=== PATIENT | male | born 1960 | race Caucasian/White ===

== ENCOUNTER → 2019-09-19 10:11 | Outpatient (CLI) | payer OTHER, SELFPAY ==
--- NOTE | 2019-09-19 10:34 | DI.CT.S_ITS ---
PROCEDURE: CT ANGIO CHEST INDICATIONS: Thoracic aortic ectasia TECHNIQUE: After the administration of intravenous contrast, 2 mm thick sections acquired from the pulmonary apices to the posterior costophrenic angles. 3-dimensional maximum intensity projection (MIP) coronal and sagittal reformats were then acquired through the thorax. For radiation dose reduction, the following was used: automated exposure control, adjustment of mA and/or kV according to patient size. COMPARISON: None. FINDINGS: Image quality: Excellent. Pulmonary arteries: Pulmonary arteries are normal in size, and demonstrate no intraluminal filling defects to suggest central pulmonary embolism. Lungs and pleura: Lungs are clear. No pleural effusions or pneumothorax. Central and peripheral airways are patent. Mediastinum: Heart size is normal, without pericardial effusion. No mediastinal or hilar adenopathy. The descending aorta is normal in caliber and enhancement. There is no suspicion for presence of aortic dissection. The ascending aorta maximal axial dimensions are 4.3 cm AP and 4.1 cm transverse, seen on series 4 image 52. Esophagus is normal in caliber, without hiatal hernia. Bones and chest wall: No suspicious bony lesions. Ribs and thoracic spine appear intact throughout. Thyroid gland appears normal. No axillary or supraclavicular adenopathy. Abdomen: Visualized upper abdominal solid organs appear normal in the early arterial phase of enhancement. IMPRESSION: No sign of pulmonary embolus or aortic dissection. No focal aortic aneurysm is found but there is ectasia of the ascending aorta with maximal axial dimensions of 4.3 cm AP and 4.1 cm transverse. No cardiac chamber enlargement is associated. Dictated by: Andrew Domingo M.D. on 09/19/2019 at 10:58 Approved by: Andrew Domingo M.D. on 09/19/2019 at 11:03
== END ==
PROVIDERS: PCP Internal Medicine; Referring Provider Internal Medicine; Visit Provider Internal Medicine
DX: I77.810 Thoracic aortic ectasia (principal)
CPT/HCPCS: 71275; Q9967

== ENCOUNTER 2020-04-15 06:29 | Emergency (ER) | payer OTHER, SELFPAY ==
[2020-04-15 06:39] VITALS: BP 169/103; PULSE 49; RESP 18; TEMP 36.1; O2SAT 100; BMI 25.8
--- NOTE | 2020-04-15 06:45 | DI.RAD.S_ITS ---
PROCEDURE: XR FOOT LT MIN 3V INDICATIONS: dropped garduno on foot; swelling/pain to first metatarsal TECHNIQUE: 3 views of the foot were acquired. COMPARISON: None. FINDINGS: Bones: No fractures or dislocations. Moderate degenerative changes present at the 1st MTP joint. No suspicious bony lesions. Soft tissues: No tibiotalar joint effusion. Achilles tendon appears normal. IMPRESSION: Degenerative change. No acute radiographic findings. Dictated by: Sheryl Samayoa M.D. on 04/15/2020 at 8:13 Approved by: Sheryl Samayoa M.D. on 04/15/2020 at 8:13
--- NOTE | 2020-04-15 07:13 | ED_ITS ---
HPI - Extremity Injury (Lower) General Chief Complaint: Extremity Injury, Lower Stated Complaint: thinks he broke left foot Time Seen by Provider: 04/15/20 07:09 Source: patient Mode of arrival: Wheelchair Limitations: no limitations History of Present Illness HPI Narrative: This is a 59-year-old male comes emergency department with complaint pain in his left foot. Patient states that he knocked a heavy base over on his foot. Patient states he has some pain at that location but denies any other injury. He states a little bit swollen and red. He normally has a large bump there as well as on the other side. He denies any other issues such as numbness, tingling or weakness. He denies any medical issues, no allergies to medications. Related Data Allergies Allergy/AdvReac Type Severity Reaction Status Date / Time No Known Drug Allergies Allergy Verified 04/15/20 06:44 Review of Systems Review of Systems ROS Unobtainable: All systems reviewed & are unremarkable except as noted in HPI and below Patient History Social History Smoking Status: Never smoker Smoking Status: Never smoker alcohol intake frequency: 0-2 drinks per day Substance Use Type: does not use Exam Narrative Exam Narrative: GENERAL: Alert and oriented x three, well-nourished, well- appearing male in no acute distress HEENT: Head normocephalic, atraumatic, EOMI, pupils reactive, face symmetric, moist mucous membranes NECK: Supple, full range of motion EXTREMITIES: Normal range of motion, no clubbing or edema. Neurovascularly intact. Patient has slight swelling over the 1st metatarsal, very mild tenderness. No ecchymosis. NEUROLOGICAL: Cranial nerves II through XII grossly intact. Moving all extremities SKIN: Warm, dry, no petechiae, no rashes or lesions. Initial Vital Signs Initial Vital Signs: Vital Signs Temperature 97.0 F L 04/15/20 06:39 Pulse Rate 49 L 04/15/20 06:39 Respiratory Rate 18 04/15/20 06:39 Blood Pressure 169/103 H 04/15/20 06:39 Pulse Oximetry 100 04/15/20 06:39 Course Orders Ordered: ED Orders 04/15/20 06:45 XR foot LT min 3V Stat Vital Signs Vital signs: Vital Signs - 8 hr 04/15/20 06:39 Temperature 97.0 F L Pulse Rate 49 L Respiratory Rate 18 Blood Pressure 169/103 H Pulse Oximetry 100 MDM - Extremity Injury (Lower) Imaging Data left foot xray: Attestation: I personally reviewed and interpreted this imaging study as follows: My Impression: No fracture appreciated, patient does have large bone spur making difficulty to fully verify. No other fx/dislocation noted. Radiologist's Impression: [address] [address] XRay Report Signed Patient: Dionte OrrMR#: [id number] : 1960Acct:[id number] Age/Sex: 59 / MDate of Service: 04/15/20 Loc: ED Accession Number: [id number] Procedure: XR foot LT min 3V Ordering Provider: Kevin York MD PROCEDURE: XR FOOT LT MIN 3V INDICATIONS: dropped garduno on foot; swelling/pain to first metatarsal TECHNIQUE: 3 views of the foot were acquired. COMPARISON: None. FINDINGS: Bones: No fractures or dislocations. Moderate degenerative changes present at the 1st MTP joint. No suspicious bony lesions. Soft tissues: No tibiotalar joint effusion. Achilles tendon appears normal. IMPRESSION: Degenerative change. No acute radiographic findings. Dictated by: Sheryl Samayoa M.D. on 04/15/2020 at 8:13 Approved by: Sheryl Samayoa M.D. on 04/15/2020 at 8:13 [facility] Narrative Medical decision making narrative: Patient states feels comfortable at this time, plan to do ortho shoe and can d/c if asymptomatic, discussed xray findings and difficulty to evaluate fully but with minimal tenderness and ease with weightbearing suspicion is low for fracture. Patient is comfortable with this plan. Discharge Plan Departure Patient Disposition: Home Clinical Impression: Foot pain, left Discharge Date/Time: 04/15/20 07:31 Activity Restrictions/Additional Instructions: Follow-up in 7-10 days if your symptoms have not completely resolved, you can occasionally have occult fractures that are not seen on initial x-rays these can often be visualized in that time frame. May take Tylenol and/or ibuprofen as needed for pain. Splint Care: Keep splint clean and dry. Elevated affected body part to decrease swelling. OK to use ice pack on the affected body part. Use for 15-20 minutes each time, for 5-6x per day. If you develop worsening pain, numbness, tingling, discoloration of the affected body part, loosen the splint by loosening the DAYDAY wrap, and either see your doctor for an urgent re-assessment, or return to the Emergency Department. Return to the Emergency Department for any new or worsening symptoms. Referrals: Rio Hoffman MD [Primary Care Provider] -
== END 2020-04-15 07:31 | disposition home or self-care (01) ==
PROVIDERS: Emergency Provider Emergency Medicine; PCP Internal Medicine
DX: M79.672 Pain in left foot (principal)
CPT/HCPCS: 73630; 99281; 99283

== ENCOUNTER 2022-03-31 07:05 | Emergency (ER) | payer OTHER, SELFPAY ==
[2022-03-31 07:05] VITALS: BP 159/98; PULSE 56; RESP 18; TEMP 36.4; O2SAT 98; BMI 25.7
--- NOTE | 2022-03-31 07:46 | DI.RAD.S_ITS ---
PROCEDURE: XR LUMBAR SPINE 2-3V INDICATIONS: hx of fusion with injury lifting TECHNIQUE: 3 views of the lumbar spine were acquired. COMPARISON: None. FINDINGS: Bones: 5 [id number] vertebrae are present. Posterior fusion at L4-L5 has been performed. Multilevel disc space narrowing and endplate osteophyte formation, indicating degenerative disc disease. Facet hypertrophy throughout the mid and lower lumbar spine. There is normal bony alignment. No vertebral body compression fractures. No suspicious bony lesions. Soft tissues: Overlying bowel gas pattern is normal. No suspicious soft tissue calcifications. IMPRESSION: 1. Postsurgical sequelae. 2. No acute fracture. No osseous lesion. If symptoms and/or clinical suspicion for pathology persist, further assessment with repeat, or advanced imaging (e.g., CT, MRI, or bone scan) may be helpful for further assessment. Dictated by: Betsy Silverio M.D. on 03/31/2022 at 8:09 Approved by: Betsy Silverio M.D. on 03/31/2022 at 8:09
--- NOTE | 2022-03-31 07:46 | ED.BACK ---
HPI - Back Pain/Injury General Chief Complaint: Back Pain/Injury Stated Complaint: back spasms Time Seen by Provider: 03/31/22 07:38 Source: patient and family Mode of arrival: Ambulatory Limitations: no limitations History of Present Illness HPI Narrative: Patient is a 61-year-old male. Has had a lumbar spinal fusion many years ago. Does spend quite a bit of time working out. At the end of last week he was doing some lifts when there was 1 particular event that caused him to have pain in his lower back. It has continued to hurt since then. He is not having any radicular/sciatic symptoms. Related Data Previous Rx's Medication Instructions Recorded cyclobenzaprine 10 mg tablet 10 mg PO TID PRN muscle spasm #20 03/31/22 tabs meloxicam 7.5 mg tablet 7.5 mg PO DAILY PRN back pain #45 03/31/22 tabs Allergies Allergy/AdvReac Type Severity Reaction Status Date / Time No Known Drug Allergies Allergy Verified 04/15/20 06:44 Review of Systems Gastrointestinal Gastrointestinal: Reports system reviewed and no additional complaints, except as documented Genitourinary Genitourinary: Reports system reviewed and no additional complaints, except as documented Musculoskeletal Musculoskeletal: Reports system reviewed and no additional complaints, except as documented Neurologic Neurologic: Reports system reviewed and no additional complaints, except as documented Patient History Medical History Healthy adult Social History Smoking Status: Never smoker Smoking Status: Never smoker alcohol intake frequency: 0-2 drinks per day Substance Use Type: does not use Exam Initial Vital Signs Initial Vital Signs: Vital Signs Temperature 97.6 F 03/31/22 07:05 Pulse Rate 56 L 03/31/22 07:05 Respiratory Rate 18 03/31/22 07:05 Blood Pressure 159/98 H 03/31/22 07:05 Pulse Oximetry 98 03/31/22 07:05 Oxygen Delivery Method 03/31/22 07:05 HENMT Head: normal to inspection and normocephalic Resp Effort & Inspection: normal respiratory effort Cardio Rate: regular rate Back/Spine/Pelvis Other: No thoracic spinal tenderness nor paraspinal thoracic tenderness. His discomfort is located in a ?band? along the lumbar region. He does have some muscle fullness on the left compared to the right knee describes his symptoms more on the left than the right. Skin General: no rashes or lesions noted Neuro General: patient alert, patient awake and moves all extremities Extrem General: capillary refill normal Course Orders Ordered: ED Orders 03/31/22 07:46 XR lumbar spine 2-3V Stat Vital Signs Vital signs: Vital Signs - 8 hr 03/31/22 07:05 Temperature 97.6 F Pulse Rate 56 L Respiratory Rate 18 Blood Pressure 159/98 H Pulse Oximetry 98 Oxygen Delivery Method Room Air MDM - Back Pain/Injury Imaging Data lumbar x-ray: Radiologist's Impression: [address] [address] XRay Report Signed Patient: Dionte Orr MR#: [id number] : 1960 Acct:[id number] Age/Sex: 61 / M Date of Service: 03/31/22 Loc: ED Accession Number: [id number] ?? Procedure: XR lumbar spine 2-3V Ordering Provider: Robert Santos D.O. PROCEDURE:? XR LUMBAR SPINE 2-3V ? INDICATIONS:? hx of fusion with injury lifting ? TECHNIQUE:? 3 views of the lumbar spine were acquired.? ? COMPARISON:? None. ? FINDINGS:? ? Bones:? 5 [id number] vertebrae are present.? Posterior fusion at L4-L5 has been performed.? Multilevel disc space narrowing and endplate osteophyte formation, indicating degenerative disc disease.? Facet hypertrophy throughout the mid and lower lumbar spine.? There is normal bony alignment.? No vertebral body compression fractures.? No suspicious bony lesions.? ? Soft tissues:? Overlying bowel gas pattern is normal.? No suspicious soft tissue calcifications.? ? ? IMPRESSION:? 1. Postsurgical sequelae. 2. No acute fracture. No osseous lesion. If symptoms and/or clinical suspicion for pathology persist, further assessment with repeat, or advanced imaging (e.g., CT, MRI, or bone scan) may be helpful for further assessment. ? ? Dictated by: Betsy Silverio M.D. on 03/31/2022 at 8:09 ? ? Approved by: Betsy Silverio M.D. on 03/31/2022 at 8:09? [facility] Narrative Medical decision making narrative: Patient has minimal midline spinal tenderness or paraspinal specifically on the left. The x-ray shows no signs of fractures of the spine nor of the hardware. Low suspicion for cauda equina. Will continue with symptom treatment. Had a long discussion with him regarding this. He was given return precautions. He expressed understanding and agreement. Discharge Plan Departure Patient Disposition: Home Clinical Impression: Strain of lumbar region Instructions: DI for Back Strain or Sprain Activity Restrictions/Additional Instructions: You can use heat/ice like we discussed. A prescription for Mobic and also muscle relaxers were sent to [facility]. Recommend that you stay as active as possible. Return to the emergency department any new or worsening symptoms. Prescriptions: New cyclobenzaprine 10 mg tablet 10 mg PO TID PRN (Reason: muscle spasm) Qty: 20 0RF meloxicam 7.5 mg tablet 7.5 mg PO DAILY PRN (Reason: back pain) Qty: 45 0RF Referrals: Rio Hoffman MD [Primary Care Provider] -
== END 2022-03-31 09:09 | disposition home or self-care (01) ==
PROVIDERS: Emergency Provider Emergency Medicine; PCP Internal Medicine
DX: S39.012A Strain of muscle, fascia and tendon of lower back, initial encounter (principal); X50.0XXA Overexertion from strenuous movement or load, initial encounter
CPT/HCPCS: 72100; 99281; 99283

== ENCOUNTER 2022-05-13 03:40 | Emergency (ER) | payer OTHER, SELFPAY ==
[2022-05-13 03:45] VITALS: BP 157/73; PULSE 56; RESP 16; TEMP 36.4; O2SAT 100; BMI 25.8
--- NOTE | 2022-05-13 03:52 | ED.ABDPAIN ---
HPI - Abdominal Pain General Chief Complaint: Abdominal Pain Stated Complaint: abd pain Time Seen by Provider: 05/13/22 03:42 History of Present Illness HPI narrative: 61M nonsmoker with noncontributory medical history presents with a chief complaint of epigastric and right upper quadrant pain that has been persistent for the past week. He has been having issues off and on for perhaps even 1 year but it is never been quite this bad. At its most intense it is about a 7 or an 8/10 and currently it is about a 2 or 3. He denies any radiation to his back. He is had no fever or chills. He denies nausea, vomiting but on occasion does have diarrhea. Eating and drinking seems to worsen his symptoms. He is otherwise well and free of complaint Related Data Previous Rx's Medication Instructions Recorded cyclobenzaprine 10 mg tablet 10 mg PO TID PRN muscle spasm #20 03/31/22 tabs meloxicam 7.5 mg tablet 7.5 mg PO DAILY PRN back pain #45 03/31/22 tabs hyoscyamine sulfate 0.125 mg tablet 0.125 mg PO BID-QID PRN dyspepsia 05/13/22 #20 tabs ondansetron 4 mg disintegrating 4 mg PO TID-QID PRN nausea and 05/13/22 tablet vomiting #10 tabs Allergies Allergy/AdvReac Type Severity Reaction Status Date / Time No Known Drug Allergies Allergy Verified 04/15/20 06:44 Review of Systems Review of Systems Narrative: GENERAL: Denies chills, fatigue, malaise, fever, sweats. HEENT: Denies sinus pain, ear pain, sore throat, difficulty swallowing, dizziness. RESPIRATORY: Denies dyspnea, cough, wheezing, hemoptysis, sputum. CARDIOVASCULAR: Denies chest pain, palpitations, orthopnea, edema, GASTROINTESTINAL: See HPI : Denies dysuria, frequency, incontinence, hematuria, urinary retention. MUSCULOSKELETAL: denies weakness, joint pain, or bony pain SKIN: Denies rash, skin lesions, or other NEUROLOGIC: Denies weakness, headache, numbness, change in speech, confusion, seizures, incoordination. PSYCHIATRIC: No concerning psychosocial issues. 12 point review of systems is negative except for those stated above Patient History Medical History Healthy adult Social History Smoking Status: Never smoker Smoking Status: Never smoker alcohol intake frequency: 0-2 drinks per day Substance Use Type: does not use Exam Narrative Exam Narrative: GENERAL: [61] year old patient appears stated age. Well-developed patient, in mild distress. HEAD: Atraumatic. Normocephalic. EYES: Pupils equal round and reactive. Extraocular motions intact. No scleral icterus. No injection or drainage. ENT: Nose without bleeding, purulent drainage. Throat without erythema, tonsillar hypertrophy or exudate. Airway patent. NECK: Trachea midline. Non tender CARDIOVASCULAR: Regular rate and rhythm without murmurs, gallops, or rubs. RESPIRATORY: Clear to auscultation. Breath sounds equal bilaterally. No wheezes, rales, or rhonchi. GASTROINTESTINAL: Abdomen soft, non-tender, nondistended. EXTREMITIES: No edema or joint tenderness. BACK: Nontender without deformity or crepitance. No flank tenderness. NEURO: AOx3. SKIN: No rash or erythema of visible areas Initial Vital Signs Initial Vital Signs: Vital Signs Temperature 97.6 F 05/13/22 03:45 Pulse Rate 56 L 05/13/22 03:45 Respiratory Rate 16 05/13/22 03:45 Blood Pressure 157/73 H 05/13/22 03:45 Pulse Oximetry 100 05/13/22 03:45 Oxygen Delivery Method 05/13/22 03:45 Course Orders Ordered: Discontinued Medications Sodium Chloride (Normal Saline 0.9%) 1,000 mls @ 1,000 mls/hr IV BOLUS ONE Stop: 05/13/22 05:10 Last Admin: 05/13/22 04:30 Dose: Not Given Documented By: Vital Signs Vital signs: Vital Signs - 8 hr 05/13/22 03:45 Temperature 97.6 F Pulse Rate 56 L Respiratory Rate 16 Blood Pressure 157/73 H Pulse Oximetry 100 Oxygen Delivery Method Room Air MDM - Abdominal Pain Lab Data Result diagrams: 05/13/22 04:25 05/13/22 04:25 Labs: Lab Results 05/13/22 05/13/22 Range/Units 04:25 04:25 WBC 3.1 L (4.5-11.0) X10^3/uL RBC 4.62 (4.5-5.9) X10^6/uL Hgb 14.6 (13.5-17.5) g/dL Hct 42.1 (41-53) % MCV 91.1 (80-100) fL MCH 31.5 (26-34) PG MCHC 34.6 (30-36) % RDW 13.5 (11.6-14.8) % Plt Count 173 (150-400) X10^3/uL Neut % (Auto) 48.9 L (50-75) % Lymph % (Auto) 37.8 (25-40) % [place] % (Auto) 9.9 (3-14) % Eos % (Auto) 2.5 (2-4) % Baso % (Auto) 0.9 (0-2) % Neut # (Auto) 1500 (4479-6777) /uL Lymph # (Auto) 1200 (4022-2906) /uL [place] # (Auto) 300 (0-900) /uL Eos # (Auto) 100 (0-450) /uL Baso # (Auto) 0 (0-100) /uL Sodium 135 L (137-145) mmol/L Potassium 3.9 (3.4-5.1) mmol/L Chloride 101 (98-107) mmol/L Carbon Dioxide 32 (22-32) mmol/L BUN 19 (9-20) mg/dL Creatinine 0.94 (0.66-1.25) mg/dL Estimated GFR > 60 (>60) mL/min BUN/Creatinine Ratio 20.2 (6-22) Glucose 103 (80-110) mg/dL Calcium 8.7 (8.4-10.2) mg/dL Total Bilirubin 0.5 (0.2-1.3) mg/dL AST 27 (17-59) IU/L ALT 30 (<50) IU/L Alkaline Phosphatase 56 (38-126) U/L Total Protein 6.8 (6.3-8.2) g/dL Albumin 4.2 (3.5-5.0) g/dL Globulin 2.6 (1.7-4.1) g/dL Albumin/Globulin Ratio 1.6 (1.0-2.8) Lipase 119 (23-300) U/L Imaging Data CT scan - abdomen/pelvis: Radiologist's Impression: Findings are consistent with a distal enteritis. No bowel obstruction, abscess or perforation MDM Narrative Medical decision making narrative: Multiple etiologies for patient's symptoms considered include, but not limited to: [Bowel obstruction versus kidney stone versus diverticulitis versus other Patient's symptoms improved over duration of stay with above-stated therapies. History, physical exam, labs, imaging, and response to therapies have been reassuring. Findings and discharge diagnosis discussed with patient/family followed by verbalization of understanding Return precautions discussed with patient/family whom verbalize understanding. Pain has been well controlled and patient is tolerating oral hydration. Discharge Plan Departure Patient Disposition: Home Clinical Impression: Enteritis Instructions: DI for Abdominal Pain-Adult Activity Restrictions/Additional Instructions: *You have been diagnosed with [abdominal pain due to enteritis] * As we discussed your history and physical exam as well as labs and imaging are very reassuring. There is no evidence of any severe diagnoses that would require a specific or immediate intervention. *What to do: *Please continue to take your regular medications as directed. [x ] New medication prescriptions sent to your pharmacy: [[facility]] *Please follow up with your primary care provider in 2-3 days, call for an appointment. Let them know you were seen in the Emergency Department and that we ask that you be seen in follow up. We will electronically transmit a record of today's note if your PCP is in our system *Please consider a clear liquid diet for the next 24-48 hours and then slowly advance to regular as tolerated. Also, try to avoid alcohol, nicotine, caffeine, spicy, acidic or fatty foods as this may worsen your symptoms *If you do not have a primary care provider please contact the [facility] Resource line at [phone]. They will ask some questions about your medical history and help get you set up with a doctor in the community. *Return to Emergency Department if you should have any new, worsening or concerning symptoms, such as [fever greater than 101 F, shaking chills, worsening pain, persistent vomiting or other bothersome symptoms] Prescriptions: New hyoscyamine sulfate 0.125 mg tablet 0.125 mg PO BID-QID PRN (Reason: dyspepsia) Qty: 20 0RF ondansetron 4 mg tablet,disintegrating 4 mg PO TID-QID PRN (Reason: nausea and vomiting) Qty: 10 0RF No Action cyclobenzaprine 10 mg tablet 10 mg PO TID PRN (Reason: muscle spasm) Qty: 20 0RF meloxicam 7.5 mg tablet 7.5 mg PO DAILY PRN (Reason: back pain) Qty: 45 0RF Referrals: Rio Hoffman MD [Primary Care Provider] - Visit Report Forms: Patient Portal/API
--- NOTE | 2022-05-13 04:12 | DI.US.S_ITS ---
PROCEDURE: US ABDOMEN LIMITED INDICATIONS: ABDOMINAL PAIN TECHNIQUE: Real-time scanning was performed of the abdominal and retroperitoneal organs, with image documentation. COMPARISON: None. FINDINGS: Liver: Visualized liver is is normal in size and homogeneous in echotexture. Gallbladder: No gallstones. No gallbladder wall thickening, pericholecystic fluid or sonographic Abdi's sign. Biliary ducts: Intrahepatic bile ducts are non-dilated. Extrahepatic bile duct caliber measures 4.5 mm. Normal is 6-7 mm or less in diameter, or 10 mm or less post-cholecystectomy. Pancreas: Visualized portions of the pancreas are sonographically normal. Spleen: Spleen is normal in size measuring 10.3 cm in length. Multiple calcified nodules are seen in spleen. Kidneys: Right kidney measures 11.2 cm long. Left kidney measures 10.8 cm long. No hydronephrosis or nephrolithiasis. No solid masses. Aorta: Visualized aorta is normal in caliber at less than 3 cm. Iliacs: Proximal common iliac arteries are normal in caliber at less than 2.5 cm. IVC: Intrahepatic inferior vena cava is patent. Miscellaneous: No free abdominal fluid. Question bowel wall thickening in mid to lower abdomen IMPRESSION: 1. Question bowel wall thickening in mid to lower abdomen. If clinically indicated, CT would be helpful. 2. 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 No significant discrepancy with the police shift commander radiology preliminary report. Dictated by: Corey Maher M.D. on 05/13/2022 at 8:53 Approved by: Corey Maher M.D. on 05/13/2022 at 8:56
[2022-05-13 04:38] LABS: Add Manual Diff / Slide Review NO; Basophils Absolute Auto 0 /uL (0-100); Basophils Percent Auto 0.9 % (0-2); Eosinophils Absolute Auto 100 /uL (0-450); Eosinophils Percent Auto 2.5 % (2-4); Hematocrit 42.1 % (41-53); Hemoglobin 14.6 g/dL (13.5-17.5); Lymphocytes Absolute Auto 1200 /uL (1100-4500); Lymphocytes Percent Auto 37.8 % (25-40); Mean Corpuscular HGB Conc 34.6 % (30-36); Mean Corpuscular Hemoglobin 31.5 PG (26-34); Mean Corpuscular Volume 91.1 fL (80-100); Monocytes Absolute Auto 300 /uL (0-900); Monocytes Percent Auto 9.9 % (3-14); Neutrophils Absolute Auto 1500 /uL (1500-7000); Neutrophils Percent Auto 48.9 % (50-75); Platelet Count 173 X10^3/uL (150-400); Red Blood Cell Count 4.62 X10^6/uL (4.5-5.9); Red Cell Distribution Width 13.5 % (11.6-14.8); White Blood Cell Count 3.1 X10^3/uL (4.5-11.0)
[2022-05-13 04:48] LABS: Alanine Aminotransferase 30 IU/L (<50); Albumin 4.2 g/dL (3.5-5.0); Albumin Globulin Ratio 1.6 (1.0-2.8); Alkaline Phosphatase 56 U/L (38-126); Aspartate Aminotransferase 27 IU/L (17-59); BUN Creatinine Ratio 20.2 (6-22); Bilirubin Total 0.5 mg/dL (0.2-1.3); Blood Urea Nitrogen 19 mg/dL (9-20); Calcium 8.7 mg/dL (8.4-10.2); Carbon Dioxide 32 mmol/L (22-32); Chloride 101 mmol/L (98-107); Estimated Glomerular Filt Rate > 60 mL/min (>60); Globulin 2.6 g/dL (1.7-4.1); Glucose 103 mg/dL (80-110); HEMOLYSIS < 15 (0-50); Lipase 119 U/L (23-300); Potassium 3.9 mmol/L (3.4-5.1); Sodium 135 mmol/L (137-145); Total Protein 6.8 g/dL (6.3-8.2)
--- NOTE | 2022-05-13 06:28 | DI.CT.S_ITS ---
PROCEDURE: CT ABDOMEN PELVIS W CON INDICATIONS: severe abdominal pain TECHNIQUE: After the administration of oral and IV contrast, axial sections were acquired from the lung bases to the pubic symphysis. Coronal and sagittal reformats were performed. For radiation dose reduction, the following was used: automated exposure control, adjustment of mA and/or kV according to patient size. COMPARISON: [facility], , ABDOMEN LIMITED, 05/13/2022, 4:53. FINDINGS: Image quality: Excellent. Lung bases: Unremarkable. Heart: No significant findings. ABDOMEN: Liver: Normal size. Mild hepatic steatosis. Gallbladder: Unremarkable. Biliary ducts: Unremarkable. Pancreas: Unremarkable. Spleen: Unremarkable. There are calcified granulomas in spleen. Adrenal Glands: Left adrenal thickening. Kidneys and Ureters: Unremarkable. Stomach and Bowel: Stomach, small bowel loops, and colon are normal in caliber. There is moderate segmental wall thickening in small bowel loops in the right lower quadrant involving the distal ileum. Appendix is not definitively identified. No secondary signs for acute appendicitis. Diverticulosis without diverticulitis. A large amount of stool in colon. Peritoneum: No fluid collections or free fluid. No free air. Ventral Wall: No hernia. Abdominal Nodes: No retroperitoneal or mesenteric adenopathy by size criteria. Vessels: Aorta and inferior vena cava are normal in size. PELVIS: Pelvic Organs: Enlarged prostate. Bladder: Unremarkable. Pelvic Nodes: No enlarged lymph nodes. Miscellaneous: No inguinal hernias are seen. Bones: Degenerative and postsurgical changes at L4-L5 and L5-S1. IMPRESSION: 1. There is moderate segmental wall thickening of distal small intestine involving the distal ileum. Differential diagnoses include infectious regional enteritis versus inflammatory bowel disease such as Crohn's disease. Recommend clinical correlation. 2. Diverticulosis without acute diverticulitis. 3. There is a large amount of stool in colon. 4. Remote granulomatous disease involving the spleen. Dictated by: Corey Maher M.D. on 05/13/2022 at 8:16 Approved by: Corey Maher M.D. on 05/13/2022 at 8:23
[2022-05-13 07:18] VITALS: BP 154/99; PULSE 51; RESP 14; O2SAT 98
== END 2022-05-13 07:15 | disposition home or self-care (01) ==
PROVIDERS: Emergency Provider Emergency Medicine; PCP Internal Medicine
DX: K52.9 Noninfective gastroenteritis and colitis, unspecified (principal)
CPT/HCPCS: 36415; 74177; 76705; 80053; 83690; 85025; 99283; 99284; Q9967

== ENCOUNTER → 2023-03-23 18:01 | Outpatient (CLI) | payer OTHER, SELFPAY ==
--- NOTE | 2023-03-23 18:02 | DI.RAD.S_ITS ---
PROCEDURE: XR FINGER RT MIN 2V INDICATIONS: Twisted finger while walking on hands TECHNIQUE: AP hand, 2 views of the 4th finger(s) acquired. COMPARISON: None. FINDINGS: Bones: No fractures or dislocations. Mild degenerative changes most pronounced at the interphalangeal joints. No suspicious bony lesions. Soft tissues: No suspicious soft tissue calcifications. IMPRESSION: No acute osseous abnormality. If clinically indicated consider follow-up radiographs in 10-14 days. Dictated by: Charlie Cortés M.D. on 03/24/2023 at 12:40 Approved by: Charlie Cortés M.D. on 03/24/2023 at 12:42
== END ==
PROVIDERS: PCP Internal Medicine; Visit Provider Physician Assistant
DX: M79.644 Pain in right finger(s) (principal)
CPT/HCPCS: 73140

== ENCOUNTER → 2023-10-22 15:00 | Outpatient (CLI) | payer OTHER, SELFPAY ==
--- NOTE | 2023-10-22 15:03 | DI.RAD.S_ITS ---
PROCEDURE: XR FOOT LT MIN 3V INDICATIONS: GOUT TECHNIQUE: 3 views of the foot were acquired. COMPARISON: [facility], CR, XR FOOT LT MIN 3V, 04/15/2020, 6:49. FINDINGS: Bones: No fractures or dislocations. No suspicious bony lesions. First metatarsophalangeal joint space narrowing with subchondral sclerosis marginal osteophyte, increased from Soft tissues: No tibiotalar joint effusion. Achilles tendon appears normal. IMPRESSION: First MTP arthritic changes, increased from prior Approved by: Darryl Mera M.D. on 10/22/2023 at 19:56
== END ==
PROVIDERS: PCP Internal Medicine; Referring Provider Podiatrist; Visit Provider Podiatrist
DX: M10.9 Gout, unspecified (principal)
CPT/HCPCS: 73630

== ENCOUNTER 2023-11-24 09:56 | Emergency (ER) | payer OTHER, SELFPAY ==
[2023-11-24] VITALS (19 sets, daily range): BP systolic 138–192; BP diastolic 84–107; PULSE 44–55; RESP 8–24; TEMP 36.4; O2SAT 94–99; BMI 25.7
--- NOTE | 2023-11-24 10:14 | DI.RAD.S_ITS ---
PROCEDURE: XR CHEST 1V INDICATIONS: chest pain TECHNIQUE: One view of the chest was acquired. COMPARISON: None. FINDINGS: Surgical changes and devices: None. Lungs and pleura: No dense consolidation or pleural effusion Mediastinum: Heart size is at the upper limit of normal Bones and chest wall: Unremarkable IMPRESSION: Limited portable radiograph without acute abnormality. Dictated by: Frederick Spangler M.D. on 11/24/2023 at 10:59 Approved by: Frederick Spangler M.D. on 11/24/2023 at 10:59
--- NOTE | 2023-11-24 10:33 | PC.NURSE ---
Sudden onset of dizziness and light headed. Reports feeling brain fog. Patient did normal cold plunge this morning, felt fine. Got home and about 1.5hrs later symptoms started. Checked BP at home and got high readings. Patient used to take Losartan for blood pressure. Patient has not been on meds for well over a year. Patient took one losartan about 1hr VB [employer]. Patient denies chest pain or SOB. Patient shaking states it could be a delayed effect from the water this morning that happens Patient history of Aortic Aneurysm.
--- NOTE | 2023-11-24 10:37 | ED.GENADULT ---
HPI - General Adult General Chief complaint: Hypertension Stated complaint: high bp Time Seen by Provider: 11/24/23 10:37 Source: patient Mode of arrival: Ambulatory History of Present Illness HPI narrative: 63-year-old male with history of known thoracic aortic aneurysm that has been stable on previous imaging studies but greater than 4 cm dilatation, felt well this morning, did his cold plans in the see as he usually does, then was on a phone meeting 0830, shortly thereafter had some ?fogginess? sensation, checked his blood pressure, measured at 205/95, took an old supply of losartan oral medication, blood pressure seemed to be coming down, fogginess resolved, here for further evaluation. Denies chest pain or shortness of breath. Face arm or leg. No use of blood thinner medications. No history of prior stroke. No recent illness symptoms. Related Data Previous Rx's Medication Instructions Recorded cyclobenzaprine 10 mg tablet 10 mg PO TID PRN muscle spasm #20 03/31/22 tabs meloxicam 7.5 mg tablet 7.5 mg PO DAILY PRN back pain #45 03/31/22 tabs hyoscyamine sulfate 0.125 mg tablet 0.125 mg PO BID-QID PRN dyspepsia 05/13/22 #20 tabs ondansetron 4 mg disintegrating 4 mg PO TID-QID PRN nausea and 05/13/22 tablet vomiting #10 tabs Allergies Allergy/AdvReac Type Severity Reaction Status Date / Time No Known Drug Allergies Allergy Verified 03/23/23 17:47 Review of Systems Review of Systems Narrative: as per HPI Patient History Medical History Healthy adult Social History Smoking Status: Never smoker Smoking Status: Never smoker alcohol intake frequency: 0-2 drinks per day Substance Use Type: does not use Exam Narrative Exam Narrative: GENERAL: Well-developed patient, in mild distress. HEAD: Atraumatic. Normocephalic. EYES: Pupils equal round and reactive. Extraocular motions intact. No scleral icterus. No injection or drainage. ENT: Nose without bleeding, purulent drainage. Throat without erythema, tonsillar hypertrophy or exudate. Airway patent. NECK: Trachea midline. Non tender CARDIOVASCULAR: Regular rate and rhythm without murmurs, gallops, or rubs. RESPIRATORY: Clear to auscultation. Breath sounds equal bilaterally. No wheezes, rales, or rhonchi. GASTROINTESTINAL: Abdomen soft, non-tender, nondistended. EXTREMITIES: No edema or joint tenderness. BACK: Nontender without deformity or crepitance. No flank tenderness. NEURO: AOx3. SKIN: No rash or erythema of visible areas Initial Vital Signs Initial Vital Signs: Vital Signs Temperature 97.5 F L 11/24/23 10:10 Pulse Rate 52 L 11/24/23 10:10 Respiratory Rate 12 11/24/23 10:10 Blood Pressure 192/107 H 11/24/23 10:10 Pulse Oximetry 99 11/24/23 10:10 Oxygen Delivery Method Room Air 11/24/23 10:10 Course Orders Ordered: ED Orders 11/24/23 10:51 CT head/brain wo con Stat 11/24/23 10:57 CT angio chest abdomen pelvis Stat 11/24/23 13:47 Trop I [Troponin I] Stat Discontinued Medications Aspirin (Aspirin 81 Mg Chew Tab) 324 mg PO NOW ONE Stop: 11/24/23 10:14 Last Admin: 11/24/23 12:30 Dose: Not Given Documented By: LANNY Hydralazine HCl (Hydralazine 20 Mg/Ml Vial) 10 mg IV Q6HR PRN PRN Reason: Hypertension Sodium Chloride (Normal Saline 0.9%) 1,000 mls @ 1,000 mls/hr IV BOLUS ONE Stop: 11/24/23 11:50 Last Infusion: 11/24/23 13:49 Dose: Infused Documented By: Admin: 11/24/23 12:34 Dose: 1,000 mls/hr Documented By: LANNY Vital Signs Vital signs: Vital Signs - 8 hr 11/24/23 11:51 11/24/23 11:51 11/24/23 12:00 Pulse Rate 44 L 44 L Respiratory Rate 8 L 14 Blood Pressure 154/85 H Pulse Oximetry 98 98 11/24/23 12:01 11/24/23 12:01 11/24/23 12:30 Pulse Rate 45 L 47 L Respiratory Rate 18 15 Blood Pressure 170/98 H Pulse Oximetry 94 98 11/24/23 12:31 11/24/23 12:31 11/24/23 13:00 Pulse Rate 51 L 49 L Respiratory Rate 17 20 Blood Pressure 152/89 H Pulse Oximetry 96 98 11/24/23 13:00 11/24/23 13:30 11/24/23 14:00 Pulse Rate 44 L 47 L Respiratory Rate 9 L Blood Pressure 162/92 H Pulse Oximetry 99 11/24/23 14:04 11/24/23 14:04 11/24/23 14:30 Pulse Rate 48 L 51 L Respiratory Rate 20 20 Blood Pressure 149/84 H Pulse Oximetry 98 97 11/24/23 14:30 11/24/23 15:00 11/24/23 15:00 Pulse Rate 50 L Respiratory Rate 17 Blood Pressure 166/97 H 145/96 H Pulse Oximetry 97 11/24/23 15:30 11/24/23 15:30 11/24/23 15:56 Pulse Rate 51 L Respiratory Rate 12 Blood Pressure 162/87 H 138/88 Pulse Oximetry 98 11/24/23 16:00 11/24/23 16:01 11/24/23 16:30 Pulse Rate 53 L 53 L Respiratory Rate 24 20 Blood Pressure 138/88 Pulse Oximetry 99 Medical Decision Making Lab Data Lab results reviewed: Yes I reviewed the patient's lab results. 11/24/23 10:26 11/24/23 10:26 Labs: Lab Results 11/24/23 11/24/23 Range/Units 10:26 13:47 WBC 3.8 L (4.5-11.0) X10^3/uL RBC 4.82 (4.5-5.9) X10^6/uL Hgb 15.4 (13.5-17.5) g/dL Hct 44.3 (41-53) % MCV 91.9 (80-100) fL MCH 32.0 (26-34) PG MCHC 34.8 (30-36) % RDW 13.1 (11.6-14.8) % Plt Count 176 (150-400) X10^3/uL Neut % (Auto) 58.8 (50-75) % Lymph % (Auto) 28.9 (25-40) % [place] % (Auto) 10.2 (3-14) % Eos % (Auto) 1.5 L (2-4) % Baso % (Auto) 0.6 (0-2) % Neut # (Auto) 2200 (0553-4255) /uL Lymph # (Auto) 1100 (1477-5636) /uL [place] # (Auto) 400 (0-900) /uL Eos # (Auto) 100 (0-450) /uL Baso # (Auto) 0 (0-100) /uL PT 11.6 (9.4-12.5) SECONDS INR 1.0 (0.9-1.3) APTT 34 (25.1-36.5) SECONDS Sodium 135 L (137-145) mmol/L Potassium 4.1 (3.4-5.1) mmol/L Chloride 102 (98-107) mmol/L Carbon Dioxide 30 (22-32) mmol/L BUN 18 (9-20) mg/dL Creatinine 1.05 (0.66-1.25) mg/dL Estimated GFR > 60 (>60) mL/min BUN/Creatinine Ratio 17.1 (6-22) Glucose 100 (80-110) mg/dL Calcium 9.1 (8.4-10.2) mg/dL Magnesium 2.2 (1.6-2.3) mg/dL Total Bilirubin 0.8 (0.2-1.3) mg/dL AST 31 (17-59) IU/L ALT 37 (<50) IU/L Alkaline Phosphatase 51 (38-126) U/L Total Creatine Kinase 118 (55-170) U/L Troponin I < 0.012 < 0.012 (0.01-0.034) ng/mL Total Protein 7.0 (6.3-8.2) g/dL Albumin 4.5 (3.5-5.0) g/dL Globulin 2.5 (1.7-4.1) g/dL Albumin/Globulin Ratio 1.8 (1.0-2.8) Lipase 171 (23-300) U/L Imaging Data CT scan - head: Radiologist's Impression: [address] [address] [address] Scan Report Signed Patient: Dionte Orr MR#: [id number] : 1960 Acct:[id number] Age/Sex: 63 / M Date of Service: 11/24/23 Loc: ED Accession Number: [id number] Procedure: CT head/brain wo con Ordering Provider: Wellington Ramirez MD PROCEDURE: CT HEAD/BRAIN WO CON INDICATIONS: foggy TECHNIQUE: Noncontrast 4.5 mm thick angled axial sections acquired from the foramen magnum to the vertex, with coronal and sagittal reformats. For radiation dose reduction, the following was used: automated exposure control, adjustment of mA and/or kV according to patient size. COMPARISON: None. FINDINGS: Image quality: Diagnostic. CSF spaces: Basal cisterns are patent. No extra-axial fluid collections. Ventricles are normal in size and shape. Brain: No midline shift. No intracranial masses or hemorrhage. Nicholson-white matter interface is normal. Skull and face: Calvarium and visualized facial bones are intact, without suspicious lesions. Sinuses: Visualized sinuses and mastoids are clear. IMPRESSION: No acute intracranial pathology. Dictated by: Adela Kan MD, PhD on 11/24/2023 at 11:18 Approved by: Adela Kan MD, PhD on 11/24/2023 at 11:20 CTA Chest Abdomen Pelvis: Radiologist's Impression: [place] [address] CT Scan Report Signed Patient: Dionte Orr MR#: [id number] : 1960 Acct:[id number] Age/Sex: 63 / M Date of Service: 11/24/23 Loc: ED Accession Number: [id number] Procedure: CT angio chest abdomen pelvis Ordering Provider: Wellington Ramirez MD PROCEDURE: CT ANGIO CHEST ABDOMEN PELVIS INDICATIONS: elevated BP, hx aortic aneursym TECHNIQUE: Precontrast 5 mm thick sections acquired from the lung apices to the iliac crests. After the administration of intravenous contrast, 2.5 mm thick sections again acquired from the lung apices to the iliac crests. Maximum intensity projection (MIP) oblique sagittal and coronal reformats were then acquired. For radiation dose reduction, the following was used: automated exposure control. COMPARISON: [facility], CT, CT ABDOMEN PELVIS W CON, 05/13/2022, 6:21. FINDINGS: Image quality: Diagnostic. AORTA: 4.6 x 4.7 centimeter ascending thoracic aortic aneurysm. Aortic arch, descending thoracic aorta and abdominal aorta have normal caliber. No acute aortic syndrome. CHEST: Lower Neck: No enlarged lymph nodes. Thyroid: No thyroid nodules which require sonographic evaluation. Axillae: No enlarged lymph nodes. Chest Wall: Unremarkable. Lungs and Pleura: No pneumothorax or pleural effusions. No consolidation or suspicious nodules. Heart: Heart size is normal. No pericardial effusion. Thoracic Vessels: Pulmonary arteries demonstrate normal size. Mediastinum and Sammi: No enlarged lymph nodes. Calcified mediastinal and bilateral hilar lymph nodes consistent with sequela prior granulomatous disease. Esophagus: No wall thickening. No hiatal hernia. ABDOMEN: Liver: No solid mass. Gallbladder: No radiopaque gallstones or wall thickening. Biliary ducts: No biliary dilation. Pancreas: No ductal dilation. Spleen: Size is within normal limits. Stable splenic calcifications consistent with sequela prior granulomatous disease. Adrenal Glands: No adrenal nodules. Kidneys and Ureters: No hydronephrosis. No solid mass. No complex renal cystic lesion which requires follow up. Stomach and Bowel: Normal colonic caliber, without significant wall thickening. Scattered colonic diverticuli without evidence of diverticulitis. Peritoneum: No abnormal intraperitoneal fluid. No free air. Ventral Wall: No hernia. Abdominal Nodes: No retroperitoneal or mesenteric adenopathy by size criteria. Vessels: Inferior vena cava is normal in size. PELVIS: Pelvic Organs: Prostate is enlarged. Bladder: Unremarkable. Pelvic Nodes: No enlarged lymph nodes. Miscellaneous: No inguinal hernias are seen. Bones: Spine degenerative disc disease and facet arthropathy. Stable lumbosacral spine postsurgical change/fixation hardware. IMPRESSION: 4.6 x 4.7 centimeter ascending thoracic aortic aneurysm. No evidence of aortic dissection. No lung consolidation or pleural effusions. Colonic diverticulosis without evidence of diverticulitis. Dictated by: Adela Kan MD, PhD on 11/24/2023 at 11:21 Approved by: Adela Kan MD, PhD on 11/24/2023 at 11:28 ECG Data Attestation: I personally reviewed and interpreted this ECG as follows: Interpretation: Sinus bradycardia with rate 55, no obvious ST segment elevation or depression symptoms. UT interval 215 prolonged, QRS 88 normal, QTC 422 normal. [facility] Narrative Medical decision making narrative: 63-year-old male with known thoracic aortic aneurysm, felt vague ?fuzziness? symptoms after cold punch and phone meeting, elevated blood pressure at home, took old dose of oral losartan, blood pressure improved, fussiness symptoms also seemed to be resolved. Screening EKG shows sinus bradycardia, apparently his baseline heart rate is in the 50s. No obvious ischemic changes. Labs pending. CT head noncontrast study initiated. If creatinine favorable anticipate CT angiogram aortogram. CT head no acute changes. CT angiogram chest abdomen and pelvis study showed presence of ascending aortic aneurysm measuring 4.6 x 4.7 cm, within the range described by patient. We will attempt to obtain comparison studies. No acute changes otherwise. Systolic blood pressure 170s, heart rate 50-60, we will hold any labetalol for now, IV hydralazine. We will attempt to get comparison records from [facility], to speak with Cardiology or Cardiothoracic surgery Repeat troponin negative. Await call back from [facility] Cardiology 1600, call back from Dr. Duran Cardiology at [facility], was able to review records, they felt that the thoracic aneurysm had a diameter of 4.3 cm 4 years ago, so today's evaluation which show some progression, though over 4 years. He stated that he is sending an e-mail to their Cardiothoracic surgeon, to arrange a virtual consultation. He advises restart of losartan blood pressure medication with goal systolic blood pressure 1 40s. We relayed patient phone number on medical record [phone] to be contacted for virtual consultation. He also suggested follow up with his previous palliative care physician in their group Dr. Jennifer Henao. Await consultation with CT surgery likely virtual with hard to plans for thoracic aneurysm interval change. Critical Care Time Critical Care Time Critical Care Time: Yes Total Critical Care Time: 35 Attestation: The high probability of a clinically significant, sudden or life threatening deterioration of the [cardio pulmonary, vascular] system(s) required my full and direct attention, intervention and personal management. The aggregate critical care time was [35] minutes. This time is in addition to time spent performing reported procedures but includes the following: [x] Data Review and interpretation [x] Patient assessment and monitoring of vital signs [x] Documentation [x] Medication orders and management Discharge Plan Departure Patient Disposition: Home Clinical Impression: Hypertension, Thoracic aortic aneurysm Activity Restrictions/Additional Instructions: Elevated blood pressure, history of thoracic aortic aneurysm known, CT angiogram of the aorta showed 4.6 x 4.7 cm ascending aortic aneurysm. EKG and serial blood tests not suggestive of heart attack at this time. Images sent to [facility], also discussion with palliative care physician Dr. Duran, who found a study from 4 years ago with diameter 4.3 cm, who stated that he was emailing Cardiothoracic surgery with your patient information, and requesting telemedicine consultation, your phone number was relayed to relayed to Cardiothoracic surgery. Railroad [employer] Consultant also recommended restart of losartan medication. He also mentioned that you had seen Dr. Jennifer Henao in their Cardiology Clinic, to follow up with her, and consider consultation with her tomorrow regarding further blood pressure management, while awaiting Cardiothoracic surgery consultation, with regard to enlarging ascending aortic aneurysm and high blood pressure. Return earlier to this/nearest emergency department for any change worsening symptoms or any concerns prior Prescriptions: No Action cyclobenzaprine 10 mg tablet 10 mg PO TID PRN (Reason: muscle spasm) Qty: 20 0RF meloxicam 7.5 mg tablet 7.5 mg PO DAILY PRN (Reason: back pain) Qty: 45 0RF hyoscyamine sulfate 0.125 mg tablet 0.125 mg PO BID-QID PRN (Reason: dyspepsia) Qty: 20 0RF ondansetron 4 mg tablet,disintegrating 4 mg PO TID-QID PRN (Reason: nausea and vomiting) Qty: 10 0RF Referrals: Rio Hoffman MD [Primary Care Provider] - Stand Alone Forms: Patient Portal/API
[2023-11-24 10:39] LABS: Add Manual Diff / Slide Review NO; Basophils Absolute Auto 0 /uL (0-100); Basophils Percent Auto 0.6 % (0-2); Eosinophils Absolute Auto 100 /uL (0-450); Eosinophils Percent Auto 1.5 % (2-4); Hematocrit 44.3 % (41-53); Hemoglobin 15.4 g/dL (13.5-17.5); Lymphocytes Absolute Auto 1100 /uL (1100-4500); Lymphocytes Percent Auto 28.9 % (25-40); Mean Corpuscular HGB Conc 34.8 % (30-36); Mean Corpuscular Volume 91.9 fL (80-100); Monocytes Absolute Auto 400 /uL (0-900); Monocytes Percent Auto 10.2 % (3-14); Neutrophils Absolute Auto 2200 /uL (1500-7000); Neutrophils Percent Auto 58.8 % (50-75); Platelet Count 176 X10^3/uL (150-400); Red Blood Cell Count 4.82 X10^6/uL (4.5-5.9); Red Cell Distribution Width 13.1 % (11.6-14.8); White Blood Cell Count 3.8 X10^3/uL (4.5-11.0)
[2023-11-24 10:44] LABS: Prothrombin Time 11.6 SECONDS (9.4-12.5)
[2023-11-24 10:46] LABS: PTT Partial Thromboplastin Tim 34 SECONDS (25.1-36.5)
[2023-11-24 10:49] LABS: Alanine Aminotransferase 37 IU/L (<50); Albumin 4.5 g/dL (3.5-5.0); Albumin Globulin Ratio 1.8 (1.0-2.8); Alkaline Phosphatase 51 U/L (38-126); Aspartate Aminotransferase 31 IU/L (17-59); BUN Creatinine Ratio 17.1 (6-22); Bilirubin Total 0.8 mg/dL (0.2-1.3); Blood Urea Nitrogen 18 mg/dL (9-20); Calcium 9.1 mg/dL (8.4-10.2); Carbon Dioxide 30 mmol/L (22-32); Chloride 102 mmol/L (98-107); Creatine Kinase 118 U/L (55-170); Estimated Glomerular Filt Rate > 60 mL/min (>60); Globulin 2.5 g/dL (1.7-4.1); Glucose 100 mg/dL (80-110); HEMOLYSIS < 15 (0-50); Lipase 171 U/L (23-300); Magnesium 2.2 mg/dL (1.6-2.3); Potassium 4.1 mmol/L (3.4-5.1); Sodium 135 mmol/L (137-145)
--- NOTE | 2023-11-24 10:51 | DI.CT.S_ITS ---
PROCEDURE: CT HEAD/BRAIN WO CON INDICATIONS: foggy TECHNIQUE: Noncontrast 4.5 mm thick angled axial sections acquired from the foramen magnum to the vertex, with coronal and sagittal reformats. For radiation dose reduction, the following was used: automated exposure control, adjustment of mA and/or kV according to patient size. COMPARISON: None. FINDINGS: Image quality: Diagnostic. CSF spaces: Basal cisterns are patent. No extra-axial fluid collections. Ventricles are normal in size and shape. Brain: No midline shift. No intracranial masses or hemorrhage. Nicholson-white matter interface is normal. Skull and face: Calvarium and visualized facial bones are intact, without suspicious lesions. Sinuses: Visualized sinuses and mastoids are clear. IMPRESSION: No acute intracranial pathology. Dictated by: Adela Kan MD, PhD on 11/24/2023 at 11:18 Approved by: Adela Kan MD, PhD on 11/24/2023 at 11:20
--- NOTE | 2023-11-24 10:57 | DI.CT.S_ITS ---
PROCEDURE: CT ANGIO CHEST ABDOMEN PELVIS INDICATIONS: elevated BP, hx aortic aneursym TECHNIQUE: Precontrast 5 mm thick sections acquired from the lung apices to the iliac crests. After the administration of intravenous contrast, 2.5 mm thick sections again acquired from the lung apices to the iliac crests. Maximum intensity projection (MIP) oblique sagittal and coronal reformats were then acquired. For radiation dose reduction, the following was used: automated exposure control. COMPARISON: [facility], CT, CT ABDOMEN PELVIS W CON, 05/13/2022, 6:21. FINDINGS: Image quality: Diagnostic. AORTA: 4.6 x 4.7 centimeter ascending thoracic aortic aneurysm. Aortic arch, descending thoracic aorta and abdominal aorta have normal caliber. No acute aortic syndrome. CHEST: Lower Neck: No enlarged lymph nodes. Thyroid: No thyroid nodules which require sonographic evaluation. Axillae: No enlarged lymph nodes. Chest Wall: Unremarkable. Lungs and Pleura: No pneumothorax or pleural effusions. No consolidation or suspicious nodules. Heart: Heart size is normal. No pericardial effusion. Thoracic Vessels: Pulmonary arteries demonstrate normal size. Mediastinum and Sammi: No enlarged lymph nodes. Calcified mediastinal and bilateral hilar lymph nodes consistent with sequela prior granulomatous disease. Esophagus: No wall thickening. No hiatal hernia. ABDOMEN: Liver: No solid mass. Gallbladder: No radiopaque gallstones or wall thickening. Biliary ducts: No biliary dilation. Pancreas: No ductal dilation. Spleen: Size is within normal limits. Stable splenic calcifications consistent with sequela prior granulomatous disease. Adrenal Glands: No adrenal nodules. Kidneys and Ureters: No hydronephrosis. No solid mass. No complex renal cystic lesion which requires follow up. Stomach and Bowel: Normal colonic caliber, without significant wall thickening. Scattered colonic diverticuli without evidence of diverticulitis. Peritoneum: No abnormal intraperitoneal fluid. No free air. Ventral Wall: No hernia. Abdominal Nodes: No retroperitoneal or mesenteric adenopathy by size criteria. Vessels: Inferior vena cava is normal in size. PELVIS: Pelvic Organs: Prostate is enlarged. Bladder: Unremarkable. Pelvic Nodes: No enlarged lymph nodes. Miscellaneous: No inguinal hernias are seen. Bones: Spine degenerative disc disease and facet arthropathy. Stable lumbosacral spine postsurgical change/fixation hardware. IMPRESSION: 4.6 x 4.7 centimeter ascending thoracic aortic aneurysm. No evidence of aortic dissection. No lung consolidation or pleural effusions. Colonic diverticulosis without evidence of diverticulitis. Dictated by: Adela Kan MD, PhD on 11/24/2023 at 11:21 Approved by: Adela Kan MD, PhD on 11/24/2023 at 11:28
[2023-11-24 11:00] LABS: Troponin I < 0.012 ng/mL (0.01-0.034)
[2023-11-24] MEDS: SODIUM CHLORIDE 0.9% 1,000 ML 1000 ML IV (12:34)
[2023-11-24 14:48] LABS: Troponin I < 0.012 ng/mL (0.01-0.034)
--- NOTE | 2023-11-24 16:00 | PC.NURSE ---
Addendum entered by Brynn Jeffery R.N. 11/24/23 16:01: current manual BP Original Note: DIET-PER OK FOR PT TO EAT general diet
== END 2023-11-24 16:59 | disposition home or self-care (01) ==
PROVIDERS: Emergency Provider Emergency Medicine; PCP Internal Medicine
DX: I71.20 Thoracic aortic aneurysm, without rupture, unspecified (principal); I10 Essential (primary) hypertension; R00.1 Bradycardia, unspecified
CPT/HCPCS: 36415; 70450; 71045; 71275; 74174; 80053; 82550; 83690; 83735; 84484; 85025; 85610; 85730; 93005; 96360; 99284; Q9967

== ENCOUNTER → 2024-03-28 09:38 | Outpatient (CLI) | payer OTHER, SELFPAY ==
--- NOTE | 2024-03-28 09:39 | DI.CT.S_ITS ---
PROCEDURE: CT ANGIO CHEST INDICATIONS: ANEURYSM TECHNIQUE: After the administration of intravenous contrast, 2.5 mm thick sections acquired from the lung apices to the posterior lung bases. Maximum intensity projection (MIP) oblique sagittal reformats were then acquired parallel to the aortic arch. For radiation dose reduction, the following was used: automated exposure control. COMPARISON: [facility], CT, CT ANGIO CHEST ABDOMEN PELVIS, 11/24/2023, 11:07. FINDINGS: Image quality: Diagnostic Aorta: Motion artifact from cardiac pulsations degrades full evaluation of the proximal ascending aorta. The ascending aorta measures 4.5 cm in greatest diameter at the level of the main pulmonary artery (series 4, image 73) and appears relatively stable compared to previous study. The remainder of the thoracic aorta appears unremarkable without thoracic aortic aneurysm, dissection or significant stenosis. Origins of the great vessels appear patent. Lower Neck: No enlarged lymph nodes. Thyroid: No thyroid nodules which require sonographic follow up, per consensus guidelines. Axillae: No enlarged lymph nodes. Chest Wall: Unremarkable. Bones: Unremarkable. Lungs and Pleura: Scattered subpleural calcified nodules within both lower lobes and lateral left lung apex. No new or enlarging lymph nodes. No focal airspace opacity or consolidation. No pneumothorax or pleural effusion. Heart: Heart size is normal. No pericardial effusion. Thoracic Vessels: Pulmonary arteries demonstrate normal size. Mediastinum and Sammi: No enlarged lymph nodes. Small calcified bilateral hilar, AP window and paraesophageal lymph nodes. Esophagus: No wall thickening. No hiatal hernia. Upper Abdomen: Visualized upper abdomen solid organs and bowel loops appear normal. IMPRESSION: Stable dilatation of ascending aorta measuring 4.5 cm in greatest diameter. Dictated by: Raad Sandhu M.D. on 03/28/2024 at 13:58 Approved by: Raad Sanhdu M.D. on 03/28/2024 at 14:26
[2024-03-28 10:11] LABS: Estimated Glomerular Filt Rate 53 mL/min (>60)
== END ==
LOC: CT 09:38
PROVIDERS: Radiology Diagnostic Radiology; PCP Internal Medicine; Referring Provider Surgery; Visit Provider Surgery
DX: I77.810 Thoracic aortic ectasia (principal); I72.9 Aneurysm of unspecified site; R91.8 Other nonspecific abnormal finding of lung field; Z13.89 Encounter for screening for other disorder
CPT/HCPCS: 36415; 71275; 82565; Q9967